=== PATIENT | male | born 1975 | race African-American/Black ===

== ENCOUNTER 2022-03-07 20:50 | Emergency (ER) | payer MEDICAID, OTHER ==
[~2022-03-07] VITALS: Ht 175.3 cm; Wt 95.0 kg
[2022-03-07] MEDS ORDERED: IBUPROFEN 600MG TABLET PO ONE (23:45)
[2022-03-07 23:55] VITALS: BP 149/87
[2022-03-08 00:41] LABS: BASOPHILS % 1.3 % (0.0-2.0); EOSINOPHILS % 4.6 % (0.0-5.0); HEMATOCRIT. 43.5 % (42.0-52.0); HEMOGLOBIN. 14.6 g/dL (14.0-18.0); LYMPHOCYTES % 40.4 % (20.0-50.0); MEAN CORPUSCULAR HEMOGLOBIN 31.4 pg (28.0-32.0); MEAN CORPUSCULAR VOLUME 93.2 fL (80.0-94.0); MEAN PLATELET VOLUME 8.2 fl (7.4-10.4); NEUTROPHILS % 46.7 % (40.0-76.0); PLATELET 299 x1000/uL (130-400); RED BLOOD CELL COUNT 4.67 mill/uL (4.7-6.1); RED CELL DISTRIBUTION WIDTH 14.4 % (11.6-14.6)
[2022-03-08 01:38] LABS: PROTHROMBIN TIME 10.3 sec (9.6-11.0)
[2022-03-08 03:33] LABS: CHLORIDE 110 mEq/L (98-107)
[2022-03-08 04:23] LABS: CLARITY URINE CLEAR (CLEAR); COLOR URINE YELLOW (YELLOW); KETONES URINE TRACE (NEGATIVE); LEUKOCYTE ESTERASE URINE NEGATIVE (NEGATIVE); NITRITE URINE NEGATIVE (NEGATIVE); OCCULT BLOOD URINE NEGATIVE (NEGATIVE); PH URINE 5.5 (4.5-8.0); PROTEIN URINE NEGATIVE (NEGATIVE); UROBILINOGEN URINE 0.2 E.U./dL (0.2-1.0)
[2022-03-08] MEDS ORDERED: IBUP-2029 MT (06:01)
== END 2022-03-08 06:10 | disposition home or self-care (01) ==
LOC: ER 20:50
DX: N20.0 Calculus of kidney (principal); R10.9 Unspecified abdominal pain; E78.00 Pure hypercholesterolemia, unspecified; I10 Essential (primary) hypertension; Z86.718 Personal history of other venous thrombosis and embolism
CPT/HCPCS: 36415; 74176; 76705; 80053; 81003; 85025; 86850; 86900; 99284